=== PATIENT | male | born 1950 | race African-American/Black ===

== ENCOUNTER 2016-09-19 14:30 | Outpatient (RCR) | payer MEDICARE, MEDICAID ==
[~2016-09-19 14:30] MED LIST: ASPIRIN EC81 MG; HYTRIN2 MG; LOSARTAN POTAS100 MG; METOPROLOL TART50 M1; NORVASC5 MG ORAL; PANTOPRAZOLE SO40 MG; PROPYLTHIOURACI50 M2; TRAMADOL HCL50 MG
== END 2016-09-24 | disposition home or self-care (01) ==
LOC: PTY 14:30
DX: M16.10 Unilateral primary osteoarthritis, unspecified hip (principal); M17.0 Bilateral primary osteoarthritis of knee
CPT/HCPCS: 97110; 97163; G8978; G8979

== ENCOUNTER 2016-10-24 10:26 | Outpatient (RCR) | payer MEDICARE, MEDICAID | END 2016-10-25 | disposition home or self-care (01) | LOC: PTY 10:26 | DX: M16.12 Unilateral primary osteoarthritis, left hip (principal); M17.12 Unilateral primary osteoarthritis, left knee ==